=== PATIENT | female | born 1990 | race Caucasian/White ===

== ENCOUNTER 2023-07-17 13:14 | Emergency (ER) | payer OTHER, SELFPAY ==
[2023-07-17 13:19] VITALS: BP 126/72; PULSE 94; O2SAT 100
[2023-07-17 13:41] VITALS: BP 126/80; PULSE 91; RESP 19; TEMP 36.6; O2SAT 100; BMI 20.8
[2023-07-17 14:19] LABS: MANUAL DIFF FLAG NO
[2023-07-17 14:20] LABS: Basophils Percent Auto 0.8 % (0-2); Eosinophils Percent Auto 0.4 % (0-4); Hematocrit 38.7 % (37.0-47.0); Hemoglobin 13.2 g/dl (12.0-16.0); Imm Gran Abs Auto 0.01 X10*3/uL (0.00-0.03); Imm Gran Pct Auto 0.2 % (0.0-0.4); Lymphocytes Absolute Auto 1.9 X10*3/uL (1.2-4.9); Lymphocytes Percent Auto 39.5 % (20-40); Mean Corpuscular HGB Conc 34.1 g/dl (31.0-35.0); Mean Corpuscular Hemoglobin 30.6 pg (27.0-33.0); Mean Corpuscular Volume 89.8 fL (80.0-98.0); Mean Platelet Volume 9.2 fL (9.4-12.3); Monocytes Absolute Auto 0.3 X10*3/uL (0.1-1.2); Monocytes Percent Auto 7.2 % (2-11); Neutrophils Absolute Auto 2.5 x10*3/uL (2.0-8.3); Neutrophils Percent Auto 51.9 % (45-73); Platelet Count 342 X10*3/uL (160-400); Red Blood Count 4.31 X10*6/uL (4.20-5.50); Red Cell Distribution Width 10.9 % (11.0-16.0); White Blood Count 4.7 X10*3/uL (4.8-10.8)
[2023-07-17 14:21] LABS: Appearance Urine Clear; Color Urine Yellow; Glucose Urine UA Negative (Negative); Leukocyte Esterase Urine Negative (Negative); Nitrite Urine Positive (Negative); Specific Gravity - Urine 1.015 (1.005-1.025); UMIC TRIGGER UACC YES; Urine Blood Negative (Negative); Urine Ketones Negative (Negative); Urine Protein Negative (Neg-Trace)
[2023-07-17 14:23] LABS: Bacteria Urine 4+ (None Seen); Hyaline Casts Urine 0-2 /LPF (0-2); RBC Urine 0-2 /HPF (0-2); UACC Culture Trigger YES; WBC Urine 0-5 /HPF (0-5)
[2023-07-17 14:33] LABS: COVID-19 Test Negative (Negative); IDNOW Serial# 9DB6401D
[2023-07-17 14:35] LABS: Alanine Aminotransferase 13 U/L (0-31); Albumin Level 4.3 g/dL (3.5-5.0); Alkaline Phosphatase 50 U/L (39-117); Anion Gap 10 (12-20); Aspartate Amino Transferase 15 U/L (5-31); Bilirubin Total 0.3 mg/dL (0.0-1.0); Blood Urea Nitrogen 6 mg/dL (9-16); Calcium 9.3 mg/dL (8.4-10.2); Carbon Dioxide 26 mmol/L (22-29); Chloride 108 mmol/L (96-108); Creatinine Clr Calc Pharmacy 85.4; Estimated Glomerular Filt Rate > 60; Glucose Random 96 mg/dL (60-115); Lipase 23 U/L (8-78); Magnesium 2.3 mg/dL (1.6-2.6); Potassium 3.9 mmol/L (3.3-5.1); Sodium 140 mmol/L (135-145); Total Protein 7.5 g/dL (6.5-8.0)
[2023-07-17 14:39] LABS: Ethanol < 10 mg/dL
[2023-07-17 14:41] LABS: HCG Quantitative < 2 mIU/mL
[2023-07-17 14:50] LABS: Amphetamine Screen Urine POSITIVE (Not Detect); Barbiturates, Urine Not Detected (Not Detect); Benzodiazepines Screen Urine Not Detected (Not Detect); Cannabinoid Screen Urine POSITIVE (Not Detect); Cocaine Screen Urine Not Detected (Not Detect); Fentanyl, urine Not Detected (Not Detect); Opiate Screen Urine Not Detected (Not Detect); Phencyclidine Screen Urine Not Detected (Not Detect)
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
--- NOTE | 2023-07-17 22:06 | PC.NURSE ---
Teresa from [facility] called reporting that Dr. Rocío Reis is accepting pt. Pt to arrive at [facility] 07/18/2023 for 1100.
[2023-07-17 23:37] VITALS: BP 130/74; PULSE 63; RESP 15; TEMP 36.3; O2SAT 100
--- NOTE | 2023-07-18 00:34 | PC.NURSE ---
Pt sleeping at the bedside in no apparent distress. Breaths are even regular and unlabored with equal chest rises. Monitoring ongoing.
--- NOTE | 2023-07-18 06:41 | PC.NURSE ---
Teresa from [facility] called requesting pts evaluation and lab results as pt is the daughter of one of their funders who are requesting for pt to be transferred to [facility]. This information shared with Abhishek from the care team who states pts case is scheduled to be presented to our providers this morning and will follow up with Teresa.
[2023-07-18 08:13] VITALS: BP 120/70; PULSE 86; RESP 16; TEMP 36.8; O2SAT 100
--- NOTE | 2023-07-18 13:06 | PC.NURSE ---
Jordana was OOB this shift and was observed watching TV and sitting on her bed. Denies SI/HI/AVH. Appetite fair. Jordana was requesting discharge but has a section [address] is being transferred to [facility]. Agreeable to transferring but reports she is not happy and it's not going to be good for any of you . Denies pain or discomfort.
== END 2023-07-18 13:11 ==
PROVIDERS: Physician Assistant Medical; Emergency Provider Emergency Medicine Emergency Medical Services
DX: F22 Delusional disorders (principal); F90.9 Attention-deficit hyperactivity disorder, unspecified type; Z11.52 Encounter for screening for COVID-19; F12.90 Cannabis use, unspecified, uncomplicated
CPT/HCPCS: 36415; 80053; 80307; 81001; 83690; 83735; 84702; 85025; 87086; 87088; 87186; 87635; 99285